=== PATIENT | male | born 1970 | race Caucasian/White ===

== ENCOUNTER → 2019-12-21 | Outpatient (CLI) | payer OTHER | LOC: COL.RAD 08:23 | DX: G43.109 Migraine with aura, not intractable, without status migrainosus (principal) | CPT/HCPCS: A9585 ==

== ENCOUNTER → 2019-12-31 | Outpatient (CLI) | payer OTHER | LOC: COL.CARD 09:32 | DX: G43.109 Migraine with aura, not intractable, without status migrainosus (principal); R42 Dizziness and giddiness ==

== ENCOUNTER → 2020-03-19 | Outpatient (CLI) | payer OTHER | LOC: COL.RAD 12:14 | DX: D47.2 Monoclonal gammopathy (principal) ==

== ENCOUNTER → 2020-04-11 | Outpatient (CLI) | payer OTHER | LOC: COL.RAD 09:13 | DX: G43.109 Migraine with aura, not intractable, without status migrainosus (principal); R90.82 White matter disease, unspecified | CPT/HCPCS: A9585 ==

== ENCOUNTER 2020-05-21 12:17 | Outpatient (CLI) | payer OTHER ==
[~2020-05-21] VITALS: Ht 185.4 cm; Wt 109.3 kg
[~2020-05-21 12:17] MED LIST: ASPIRIN 81M81 MG/TA2 PO; DESYREL 50MG50 MG PO; LIPITOR20 MG PO; LOPRESSOR 225 MG/TAB PO; MAG-OX 400400 MG/TAB PO
[2020-05-21 13:04] VITALS: BP 121/79; PULSE 66
[2020-05-21 14:00] VITALS: BP 140/70; PULSE 57
--- NOTE | 2020-05-21 14:00 | NUR ---
Transferred from Radiology by cart. Moved to bed independently. Two bandaids noted to loww middle back CD&I. VSS. Lab in to drawn Red Top tube for MS
[2020-05-21 14:15] VITALS: BP 106/65; PULSE 57
[2020-05-21 14:30] VITALS: BP 103/66; PULSE 55
[2020-05-21 15:04] LABS: CSF APPEARANCE CLEAR; CSF COLOR COLORLESS; CSF POLYMORPHONUCLEAR 0 % (0-6); CSF RBC 0 /mm3 (0-0)
[2020-05-21 15:05] LABS: CSF MONONUCLEAR 100 % (70-100)
[2020-05-21 15:12] VITALS: BP 140/70; PULSE 57
--- NOTE | 2020-05-21 15:36 | NUR ---
Discharge instructions given. Transferred to private car by [facility]
[2020-05-21 17:00] LABS: GLUCOSE,CSF 64 mg/dL (40-70); TOTAL PROTEIN,CSF 51 mg/dL (15-45)
== END 2020-05-21 15:47 | disposition home or self-care (01) ==
LOC: COL.RAD 12:17
PROVIDERS: Psychiatry & Neurology Neurology
DX: R90.89 Other abnormal findings on diagnostic imaging of central nervous system (principal)

== ENCOUNTER → 2020-07-18 | Outpatient (CLI) | payer OTHER ==
[~2020-07-18] MED LIST changes: +FLOMAX 0.40.4 MG/CAP PO; +FLORINEF ACETA0.1 MG PO; +PROAIR HFA0.09 MG/AC IH; +VIAGRA100 M1 PO
== END ==
LOC: COL.RAD 07:57
DX: G43.109 Migraine with aura, not intractable, without status migrainosus (principal); D47.2 Monoclonal gammopathy; R90.89 Other abnormal findings on diagnostic imaging of central nervous system
CPT/HCPCS: A9585

== ENCOUNTER 2021-02-05 08:18 | Outpatient (CLI) | payer OTHER ==
[~2021-02-05] VITALS: Ht 185.4 cm; Wt 106.8 kg
[~2021-02-05 08:18] MED LIST changes: -FLOMAX 0.40.4 MG/CAP PO; -FLORINEF ACETA0.1 MG PO; -PROAIR HFA0.09 MG/AC IH; -VIAGRA100 M1 PO
[2021-02-05] MEDS ORDERED: FLORINEF ACETA0.1 MG PO (08:51)
[2021-02-05] MEDS ORDERED: FLOMAX 0.40.4 MG/CAP PO (08:51)
[2021-02-05] MEDS ORDERED: PROAIR HFA0.09 MG/AC IH (08:52)
[2021-02-05] MEDS ORDERED: VIAGRA100 M1 PO (08:52)
[2021-02-05 08:53] VITALS: BP 107/63; PULSE 62; TEMP 98
[2021-02-05 09:00] LABS: BASO # 0.1 K/mm3 (0.0-0.2); BASO % 0.7 % (0.0-2.0); EOS # 0.1 K/mm3 (0.0-0.7); EOS % 1.3 % (0-4.0); GRAN # 4.6 K/mm3 (1.4-6.5); GRAN % 64.5 % (42.2-75.2); HEMATOCRIT 47.5 % (42.0-52.0); HEMOGLOBIN 16.3 g/dl (13.5-18.0); LYMPH # 1.8 K/mm3 (1.2-3.4); LYMPH % 24.7 % (20.0-51.0); MEAN CELL VOLUME 89 fl (80.0-100.0); MEAN CORPUSCULAR HEMOGLOBIN 30 pg (27.0-31.0); MEAN CORPUSCULAR HGB CONC 34 g/dl (33.0-37.0); MEAN PLATELET VOLUME 8.2 fl (7.4-10.4); MONO # 0.6 K/mm3 (0.1-0.6); MONO % 8.5 % (1.7-9.3); PLATELET COUNT 213 K/mm3 (130-400); RED BLOOD COUNT 5.36 M/mm3 (4.20-5.60); REDCELL DISTRIBUTION WIDTH-CV 13.2 % (11.5-14.5)
[2021-02-05 09:13] LABS: CALCIUM 9.1 mg/dL (8.4-10.2); CREATININE, serum 0.9 mg/dL (0.72-1.25); MAGNESIUM 2.2 mg/dL (1.6-2.6); POTASSIUM 4.2 mmol/L (3.5-4.5)
[2021-02-05 11:12] VITALS: BP 111/66; PULSE 64
[2021-02-05 11:15] VITALS: BP 113/64; PULSE 66
[2021-02-05 11:30] VITALS: BP 114/70; PULSE 61
[2021-02-05 11:45] VITALS: BP 114/67; PULSE 59
[2021-02-05 12:00] VITALS: BP 114/67; PULSE 61
--- NOTE | 2021-02-05 12:00 | NUR ---
DC instructions reviewed with pt. He expresses understanding. He's tolerated crackers and water without issue. Dressing over loop insertion site remains clean, dry and intact. Gait steady. He is escorted out to entrance to meet his daughter who will drive him home.
== END 2021-02-05 12:33 | disposition home or self-care (01) ==
LOC: COL.CAR 08:18
PROVIDERS: Internal Medicine Adult Congenital Heart Disease
DX: R42 Dizziness and giddiness (principal); R00.2 Palpitations; E78.2 Mixed hyperlipidemia; I49.9 Cardiac arrhythmia, unspecified; Z79.82 Long term (current) use of aspirin; Z79.899 Other long term (current) drug therapy
CPT/HCPCS: C1764; J7030